=== PATIENT | male | born 1945 | race Caucasian/White ===

== ENCOUNTER 2017-08-16 08:44 | Outpatient (RCR) | payer MEDICARE, SELFPAY | END 2017-09-14 | LOC: M CR 08:44 | PROVIDERS: ATTEND Internal Medicine | DX: Z95.1 Presence of aortocoronary bypass graft (principal) ==

== ENCOUNTER → 2018-08-06 | Outpatient (CLI) | payer MEDICARE ==
[2018-08-06 13:54] LABS: HEMOGLOBIN 15.5 g/dl (13.5-17.5); MEAN CORPUSCULAR HEMOGLOBIN 30.8 pg (27.0-33.0); MEAN CORPUSCULAR HGB CONC 33.7 g/dl (32.0-36.5); MEAN CORPUSCULAR VOLUME 91.5 fl (80.0-96.0); PLATELET COUNT, AUTOMATED 182 10^3/uL (150-450); RED BLOOD COUNT 5.03 10^6/uL (4.30-6.10); RED CELL DISTRIBUTION WIDTH 13.3 % (11.5-14.5); WHITE BLOOD COUNT 7.1 10^3/uL (4.0-10.0)
[2018-08-06 14:46] LABS: ALBUMIN 3.7 GM/DL (3.2-5.2); ALBUMIN/GLOBULIN RATIO 1.23 (1.00-1.93); ALKALINE PHOSPHATASE 69 U/L (45-117); ALT/SGPT 31 U/L (12-78); ANION GAP 7 MEQ/L (8-16); AST/SGOT 31 U/L (7-37); BILIRUBIN,TOTAL 0.6 MG/DL (0.2-1.0); BLOOD UREA NITROGEN 18 MG/DL (7-18); CALCIUM LEVEL 9.2 MG/DL (8.8-10.2); CARBON DIOXIDE LEVEL 29 MEQ/L (21-32); CHLORIDE LEVEL 105 MEQ/L (98-107); CREATININE FOR GFR 1.07 MG/DL (0.70-1.30); GLOMERULAR FILTRATION RATE > 60.0 (>42); GLUCOSE, FASTING 112 MG/DL (70-100); POTASSIUM SERUM 4.8 MEQ/L (3.5-5.1); SODIUM LEVEL 141 MEQ/L (136-145); TOTAL PROTEIN 6.7 GM/DL (6.4-8.2)
== END ==
LOC: M WUC 10:34
DX: K57.32 Diverticulitis of large intestine without perforation or abscess without bleeding (principal)
CPT/HCPCS: 80053

== ENCOUNTER → 2018-08-15 | Outpatient (CLI) | payer MEDICARE ==
[~2018-08-15] MED LIST: GASTROGRAFIN SOLUTION 30ML (Q9963) As Ordered; ISOVUE-370 76% 100ML VIAL (Q9967) As Ordered
== END ==
LOC: M RAD 13:35
DX: K57.32 Diverticulitis of large intestine without perforation or abscess without bleeding (principal)
CPT/HCPCS: Q9963

== ENCOUNTER → 2019-03-14 | Outpatient (REF) | payer MEDICARE ==
[2019-03-16 17:10] LABS: Lyme Disease IgG/IgM Antibodie <0.91 ISR (0.00-0.90); Lyme Disease IgM Ab Quantitati <0.80 index (0.00-0.79)
== END ==
LOC: M LAB REF 17:00
PROVIDERS: ATTEND Nurse Practitioner Family
DX: S70.361A Insect bite (nonvenomous), right thigh, initial encounter (principal); W18.30XA Fall on same level, unspecified, initial encounter; Y92.009 Unspecified place in unspecified non-institutional (private) residence as the place of occurrence of the external cause

== ENCOUNTER → 2020-07-07 | Outpatient (CLI) | payer MEDICARE ==
--- NOTE | 2020-07-16 08:35 | REP ---
ABDOMINAL SERIES: 2-VIEWS HISTORY: Right upper quadrant pain. FINDINGS: The psoas margins and flank stripes are intact. No mass, organomegaly or pathologic calcification is appreciated. There are a few loops of air-filled normal caliber small bowel. Gas is noted in the proximal and distal colon without colonic distention. No evidence of free air or significant air fluid level. IMPRESSION: Negative abdominal series. MTDD
--- NOTE | 2020-07-16 08:35 | REP ---
LUMBAR SPINE SERIES: 5-VIEWS HISTORY: Back and right upper quadrant pain. FINDINGS: Lumbar vertebral body heights are preserved. Alignment is normal. The pedicles and posterior elements are intact. There is no evidence of spondylolysis or spondylolisthesis. There is diffuse moderate degenerative disc disease with discogenic spurring most pronounced in the upper lumbar spine segments. There is vascular calcification in a normal caliber aorta. The psoas margins are symmetric. The sacrum and SI joints are unremarkable. IMPRESSION: Moderate degenerative disc disease. 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 No acute bony abnormality. MTDD
== END ==
LOC: M WUC 14:28
PROVIDERS: ATTEND Internal Medicine
DX: R10.11 Right upper quadrant pain (principal); M54.9 Dorsalgia, unspecified; M51.36 Other intervertebral disc degeneration, lumbar region

== ENCOUNTER → 2020-11-05 | Outpatient (CLI) | payer MEDICARE | LOC: M LABSMTC 11:12 | PROVIDERS: ATTEND Internal Medicine Cardiovascular Disease | DX: Z20.822 Contact with and (suspected) exposure to COVID-19 (principal) ==

== ENCOUNTER 2023-02-16 12:32 | Day surgery (SDC) | payer MEDICARE ==
[~2023-02-16] VITALS: Ht 167.6 cm; Wt 80.9 kg
[~2023-02-16 12:32] MED LIST changes: +ASPI81TA26 PO; +CRES10TA PO; +FLON1SPR; -GASTROGRAFIN SOLUTION 30ML (Q9963) As Ordered; -ISOVUE-370 76% 100ML VIAL (Q9967) As Ordered; +NS 1,000 ML IV ONE; +ZETI10TA16 PO
[2023-02-16] MEDS ORDERED: SCOPOLAMINE 1MG TRANSDERMAL PATCH TOP ONE (13:35)
[2023-02-16] MEDS ORDERED: propofoL 200 MG/20 ML VIAL As Ordered ONE (13:47)
[2023-02-16] MEDS ORDERED: LIDOCAINE 2% 100MG/5ML SDV (FOR ANES.) As Ordered ONE (13:47)
[2023-02-16] MEDS ORDERED: fentaNYL 100 MCG/2 ML INJECTION As Ordered ONE (13:47)
[2023-02-16] MEDS ORDERED: ONDANSETRON 4MG 2ML VIAL As Ordered ONE (14:10)
[2023-02-16] MEDS ORDERED: METOCLOPRAMIDE INJ 10MG/2ML VIAL As Ordered ONE (14:26)
[2023-02-16 15:00] VITALS: BP 143/76
== END 2023-02-16 15:11 | disposition home or self-care (01) ==
LOC: M OPP 12:32
PROVIDERS: ATTEND Surgery
DX: K57.30 Diverticulosis of large intestine without perforation or abscess without bleeding (principal); K92.2 Gastrointestinal hemorrhage, unspecified; K21.00 Gastro-esophageal reflux disease with esophagitis, without bleeding; K29.70 Gastritis, unspecified, without bleeding; K29.80 Duodenitis without bleeding; Z79.02 Long term (current) use of antithrombotics/antiplatelets; Z79.51 Long term (current) use of inhaled steroids; Z79.82 Long term (current) use of aspirin; Z79.899 Other long term (current) drug therapy; Z88.5 Allergy status to narcotic agent; Z88.6 Allergy status to analgesic agent; Z88.8 Allergy status to other drugs, medicaments and biological substances
CPT/HCPCS: 43239; 45378; 88305; J2405; J2765; J3010

== ENCOUNTER → 2023-07-18 | Outpatient (REF) | payer MEDICARE ==
[~2023-07-18] MED LIST changes: +EZET10TA58 PO; -NS 1,000 ML IV ONE; -ZETI10TA16 PO
[2023-07-18 12:48] LABS: URIC ACID 5.1 MG/DL (3.7-9.2)
[2023-07-18 12:51] LABS: RHEUMATOID FACTOR QUANT < 3.5 IU/ML (<14)
[2023-07-20 00:09] LABS: ANA (HEP2) Positive (.); CYCLIC CITRULLINATED PEPTIDE 2 units (0-19)
== END ==
LOC: M LAB REF 11:50
PROVIDERS: ATTEND Nurse Practitioner Family
DX: M25.511 Pain in right shoulder (principal); M25.539 Pain in unspecified wrist

== ENCOUNTER 2023-08-10 09:21 | Emergency (ER) | payer MEDICARE ==
[2023-08-10] MEDS ORDERED: TRAM50TA2 (09:35)
[2023-08-10] MEDS ORDERED: HYDR-4571 (09:35)
[2023-08-10] MEDS ORDERED: methylPREDNISolone 125MG 2ML VIAL IM ONE (11:25)
[2023-08-10] MEDS ORDERED: KETOROLAC 60MG 2ML VIAL IM ONE (11:25)
[2023-08-10 12:40] LABS: BASO # 0.1 10^3/uL (0.0-0.2); BASO % 0.6 % (0.0-1.0); EOS # 0.4 10^3/uL (0.0-0.5); EOS % 4.5 % (0.0-3.0); HEMATOCRIT 40.2 % (42.0-52.0); HEMOGLOBIN 13.5 g/dl (13.5-17.5); LYMPH # 1.6 10^3/uL (1.5-5.0); LYMPH % 18.1 % (24.0-44.0); MEAN CORPUSCULAR HEMOGLOBIN 30.1 pg (27.0-33.0); MEAN CORPUSCULAR HGB CONC 33.6 g/dl (32.0-36.5); MEAN CORPUSCULAR VOLUME 89.5 fl (80.0-96.0); MONO # 0.9 10^3/uL (0.0-0.8); MONO % 10.3 % (2.0-8.0); NEUTROPHILS # 5.9 10^3/uL (1.5-8.5); NEUTROPHILS % 66.2 % (36.0-66.0); PLATELET COUNT, AUTOMATED 212 10^3/uL (150-450); RED BLOOD COUNT 4.49 10^6/uL (4.30-6.10); WHITE BLOOD COUNT 8.9 10^3/uL (4.0-10.0)
[2023-08-10 12:47] LABS: ERYTHROCYTE SEDIMENTATION RATE 45 mm/hr (0-20)
[2023-08-10] MEDS ORDERED: PRED20TA PO (13:31)
[2023-08-10 13:48] VITALS: BP 172/90; TEMP 97.1; O2SAT 98
[2023-08-10] MEDS ORDERED: AMIT25TA19 PO (14:17)
[2023-08-10] MEDS ORDERED: AMITRIPTYLINE 25MG TABLET PO SCH (21:00)
== END 2023-08-10 14:07 | disposition home or self-care (01) ==
LOC: M ED 09:21
DX: R22.33 Localized swelling, mass and lump, upper limb, bilateral (principal); M13.0 Polyarthritis, unspecified; I10 Essential (primary) hypertension; I25.2 Old myocardial infarction; E78.5 Hyperlipidemia, unspecified; Z88.6 Allergy status to analgesic agent; Z79.52 Long term (current) use of systemic steroids; Z79.899 Other long term (current) drug therapy; Z79.02 Long term (current) use of antithrombotics/antiplatelets
CPT/HCPCS: 80047; 85025; 85652; 86140; 93970; 96372; 99283; J1885; J2930

== ENCOUNTER → 2023-08-16 | Outpatient (CLI) | payer MEDICARE ==
[~2023-08-16] MED LIST changes: +AMIT25TA19 PO; +HYDR-4571; +PRED20TA PO; +TRAM50TA2
== END ==
LOC: M WUC 09:49
PROVIDERS: ATTEND Internal Medicine
DX: M19.032 Primary osteoarthritis, left wrist (principal); M19.042 Primary osteoarthritis, left hand; M18.31 Unilateral post-traumatic osteoarthritis of first carpometacarpal joint, right hand

== ENCOUNTER → 2023-08-16 | Outpatient (REF) | payer MEDICARE | LOC: M LAB REF 12:08 | PROVIDERS: ATTEND Internal Medicine | DX: M25.50 Pain in unspecified joint (principal) ==

== ENCOUNTER → 2023-10-20 | Outpatient (REF) | payer MEDICARE | LOC: M LAB REF 12:31 | PROVIDERS: ATTEND Internal Medicine | DX: M15.9 Polyosteoarthritis, unspecified (principal) ==

== ENCOUNTER 2024-01-30 08:15 | Day surgery (SDC) | payer MEDICARE ==
[~2024-01-30] VITALS: Ht 167.6 cm; Wt 84.2 kg
[~2024-01-30 08:15] MED LIST changes: +BAYE81TA7 PO; -HYDR-4571; +HYDR-4571 PO; +PRED10TA2 PO
[2024-01-30] MEDS ORDERED: ROCURONIUM BROMIDE 50MG/5ML VIAL As Ordered ONE (08:21)
[2024-01-30] MEDS ORDERED: ONDANSETRON 4MG 2ML VIAL As Ordered ONE (08:21)
[2024-01-30] MEDS ORDERED: LIDOCAINE 2% 100MG/5ML SDV (FOR ANES.) As Ordered ONE (08:21)
[2024-01-30] MEDS ORDERED: propofoL 200 MG/20 ML VIAL As Ordered ONE (08:21)
[2024-01-30] MEDS ORDERED: fentaNYL 100 MCG/2 ML INJECTION As Ordered ONE (08:21)
[2024-01-30] MEDS ORDERED: LR 1,000 ML IV SCH ×2 (08:25→11:00)
[2024-01-30] MEDS: SCOPOLAMINE 1MG TRANSDERMAL PATCH TOP ONE (09:12)
[2024-01-30] MEDS: ceFAZolin SOD 2 GM in IV 1 EA IV ONE (09:21)
[2024-01-30] MEDS ORDERED: ACETAMINOPHEN 1000MG 100ML IV BAG As Ordered ONE (10:04)
[2024-01-30] MEDS ORDERED: KETOROLAC 60MG 2ML VIAL As Ordered ONE (10:04)
[2024-01-30] MEDS ORDERED: ePHEDrine SULFATE 25 MG/5 ML(5MG/ML) SYRINGE As Ordered ONE (10:06)
[2024-01-30] MEDS ORDERED: PHENYLephrine 500MCG 5ML (100MCG/ML) SYRINGE As Ordered ONE (10:07)
[2024-01-30] MEDS ORDERED: SUGAMMADEX SODIUM 500 MG/5 ML VIAL (BRIDION) As Ordered ONE (10:07)
[2024-01-30] MEDS ORDERED: HYDROMORPHONE HCL 0.5 MG/ 0.5 ML SYRINGE IV PRN (11:00)
[2024-01-30] MEDS ORDERED: ONDANSETRON 4MG 2ML VIAL IV PRN (11:00)
[2024-01-30] MEDS ORDERED: oxyCODONE 5MG TAB PO PRN (11:00)
[2024-01-30] MEDS ORDERED: fentaNYL 100 MCG/2 ML INJECTION IV PRN (11:00)
[2024-01-30] MEDS ORDERED: NS 1,000 ML IV SCH (11:05)
[2024-01-30] MEDS ORDERED: NORCO, ANEXSIA 5/325MG TABLET (HYDROcodone/ACETAMINOPHEN) PO PRN ×2 (11:05→11:10)
[2024-01-30 12:30] VITALS: BP 144/75; TEMP 97.4; O2SAT 97
== END 2024-01-30 12:47 | disposition home or self-care (01) ==
LOC: M SDC 08:15
PROVIDERS: ATTEND Surgery
DX: K40.20 Bilateral inguinal hernia, without obstruction or gangrene, not specified as recurrent (principal); I10 Essential (primary) hypertension; I25.10 Atherosclerotic heart disease of native coronary artery without angina pectoris; I25.2 Old myocardial infarction; Z86.73 Personal history of transient ischemic attack (TIA), and cerebral infarction without residual deficits; E78.5 Hyperlipidemia, unspecified; Z79.52 Long term (current) use of systemic steroids; K57.92 Diverticulitis of intestine, part unspecified, without perforation or abscess without bleeding; Z79.82 Long term (current) use of aspirin; Z79.899 Other long term (current) drug therapy; N40.0 Benign prostatic hyperplasia without lower urinary tract symptoms; Z98.61 Coronary angioplasty status; Z88.6 Allergy status to analgesic agent; Z88.5 Allergy status to narcotic agent
CPT/HCPCS: 49650; C1781; J0131; J0665; J0690; J1100; J1885; J2371; J2405; J3010; S2900

== ENCOUNTER → 2024-04-17 | Outpatient (REF) | payer MEDICARE ==
[2024-04-17 13:28] LABS: BACTERIA, URINE AUTO NEGATIVE (NEGATIVE); MUCUS, URINE SMALL (NEGATIVE); RBC, URINE AUTO 2 /HPF (0-3); SQUAMOUS EPITHELIAL CELL UR AU 0 /HPF (0-6); WBC, URINE AUTO 2 /HPF (0-3)
== END ==
LOC: M LAB REF 11:59
PROVIDERS: ATTEND Internal Medicine
DX: R31.29 Other microscopic hematuria (principal)

== ENCOUNTER → 2024-05-15 | Outpatient (CLI) | payer MEDICARE ==
[2024-05-15 18:59] LABS: BLOOD UREA NITROGEN 22 MG/DL (9-23); CREATININE FOR GFR 1.08 MG/DL (0.70-1.30); GLOMERULAR FILTRATION RATE > 60.0 (>42)
== END ==
LOC: M WUC 14:39
PROVIDERS: ATTEND Urology
DX: R97.20 Elevated prostate specific antigen [PSA] (principal)

== ENCOUNTER → 2024-05-24 | Outpatient (CLI) | payer MEDICARE | LOC: M WUC 10:57 | PROVIDERS: ATTEND Physician Assistant | DX: S40.012A Contusion of left shoulder, initial encounter (principal); S50.02XA Contusion of left elbow, initial encounter; W11.XXXA Fall on and from ladder, initial encounter; M19.012 Primary osteoarthritis, left shoulder; Y92.9 Unspecified place or not applicable; Y93.9 Activity, unspecified; Y99.9 Unspecified external cause status ==

== ENCOUNTER → 2025-04-30 | Outpatient (CLI) | payer MEDICARE | LOC: M WUC 09:43 | PROVIDERS: ATTEND Physician Assistant | DX: R97.20 Elevated prostate specific antigen [PSA] (principal) ==